=== PATIENT | female | born 1940 | race Two or more races ===

== ENCOUNTER 2023-08-05 17:16 | Inpatient (IN) | payer MEDICARE, MEDICAID ==
[~2023-08-05] VITALS: Ht 172.7 cm; Wt 86.2 kg
[2023-08-05] MEDS ORDERED: GABA300C PO (18:05)
[2023-08-05] MEDS ORDERED: VIT1CAPS44 PO (18:05)
[2023-08-05] MEDS ORDERED: OLAN2.5T3 PO (18:05)
[2023-08-05] MEDS ORDERED: LEVO175T7 PO (18:05)
[2023-08-05] MEDS ORDERED: CYAN25003 SL (18:05)
[2023-08-05] MEDS ORDERED: IRBE150T28 PO (18:05)
[2023-08-05] MEDS ORDERED: METR45GE TP (18:05)
[2023-08-05] MEDS ORDERED: CHOL200059 PO (18:05)
[2023-08-05] MEDS ORDERED: DEXT15DR23 EACHEYE (18:05)
[2023-08-05] MEDS ORDERED: FAMO20TA8 PO (18:05)
[2023-08-05] MEDS ORDERED: FURO-145 PO (18:05)
[2023-08-05] MEDS ORDERED: APIX2.5T PO (18:05)
[2023-08-05 18:09] LABS: BASOPHILS % (AUTO) 0.4 % (0.0-2.0); EOSINOPHILS # (AUTO) 0.4 K/uL (0.0-0.7); EOSINOPHILS % (AUTO) 5.3 % (0.0-6.0); HEMATOCRIT 38 % (33-45); HEMOGLOBIN 12.3 g/dL (11.5-14.8); LYMPHOCYTES # (AUTO) 1.6 K/uL (0.8-4.8); LYMPHOCYTES % (AUTO) 22.8 % (20.0-44.0); MEAN CORPUSCULAR HEMOGLOBIN 28 PG (26.0-33.0); MEAN CORPUSCULAR HGB CONC 32 g/dl (31.0-36.0); MEAN CORPUSCULAR VOLUME 88 fL (82-100); MONOCYTES # (AUTO) 0.8 K/uL (0.1-1.30); MONOCYTES % (AUTO) 10.8 % (2.0-12.0); NEUTROPHILS # (AUTO) 4.3 K/uL (1.8-8.9); NEUTROPHILS % (AUTO) 60.7 % (43.0-81.0); PLATELET COUNT (AUTO) 225 K/uL (150-450); RED BLOOD CELL COUNT(AUTO) 4.36 MIL/uL (4.0-5.2); RED CELL DISTRIBUTION WIDTH 14.9 % (11.5-15.0); WHITE BLOOD COUNT (AUTO) 7.1 K/uL (4.3-11.0)
[2023-08-05 18:50] LABS: CALCIUM, SERUM 8.5 mg/dL (8.5-10.1); CARBON DIOXIDE 29 mmol/L (21-32); CHLORIDE 105 mmol/L (98-107); GLUCOSE 91 mg/dL (74-106); POTASSIUM 4.1 mmol/L (3.5-5.1); SODIUM SERUM 139 mmol/L (136-145); UREA NITROGEN, BLOOD 23 mg/dL (7-18)
[2023-08-05 18:55] LABS: ALANINE AMINOTRANSFERASE 18 U/L (12-78); ALBUMIN 3.4 g/dL (3.4-5.0); ALCOHOL, BLOOD < 3 mg/dL (0-10); ALKALINE PHOSPHATASE 104 U/L (46-116); ASPARTATE AMINOTRANSFERASE 21 U/L (15-37); BILIRUBIN,DIRECT 0.2 mg/dL (0.0-0.2); BILIRUBIN,TOTAL 0.7 mg/dL (0.2-1.0); TOTAL PROTEIN, SERUM 7.9 g/dL (6.4-8.2)
[2023-08-05 18:56] LABS: ACETAMINOPHEN 0 ug/ml (10-30); SALICYLATE 0.4 mg/dL (2.8-20.0)
[2023-08-05 19:36] LABS: APPEARANCE,URINE CLEAR (CLEAR); BILIRUBIN,URINE NEGATIVE (NEGATIVE); BLOOD, URINE NEGATIVE Ery/uL (NEGATIVE); COLOR,URINE YELLOW (YELLOW); KETONES,URINE NEGATIVE (NEGATIVE); LEUKOCYTE ESTERASE ,URINE NEGATIVE (NEGATIVE); NITRITE, URINE NEGATIVE (NEGATIVE); PH,URINE 6.5 (5.0-8.0); PROTEIN,URINE NEGATIVE (NEGATIVE); UGLUCOSE NEGATIVE (NEGATIVE)
[2023-08-05 19:49] LABS: AMPHETAMINE, URINE NEGATIVE (NEGATIVE); BARBITURATE, URINE NEGATIVE (NEGATIVE); BENZODIAZEPINE, URINE NEGATIVE (NEGATIVE); CANNABINOID, URINE NEGATIVE (NEGATIVE); COCCAINE, URINE NEGATIVE (NEGATIVE); OPIATE, URINE NEGATIVE (NEGATIVE); PHENCYCLIDINE SCREEN,URINE NEGATIVE (NEGATIVE)
[2023-08-05 21:30] VITALS: BP 132/65; TEMP 98.5; O2SAT 96
[2023-08-05] MEDS ORDERED: GABAPENTIN 300 MG CAPSULE PO SCH (22:00)
[2023-08-05] MEDS ORDERED: BLOOD SUGAR DIAGNOSTIC 1 EACH STRIP IN ONE (22:30)
[2023-08-05] MEDS ORDERED: ACETAMINOPHEN 325 MG TABLET PO PRN (22:30)
[2023-08-05] MEDS ORDERED: LORAZEPAM 1 MG TABLET PO PRN (22:30)
[2023-08-05] MEDS ORDERED: MAGNESIUM HYDROXIDE 30 ML UDC PO PRN (22:30)
[2023-08-05] MEDS ORDERED: MAG HYDROX/AL HYDROX/SIMETH 30 ML UDC PO PRN (22:30)
[2023-08-06 06:23] VITALS: BP 132/65; TEMP 98.5; O2SAT 95
[2023-08-06] MEDS: LEVOTHYROXINE SODIUM 175 MCG TABLET PO SCH ×2 (07:00→07:10)
[2023-08-06 07:51] LABS: CHOLESTEROL 138 mg/dL (<200); HDL CHOLESTEROL 62 mg/dL (40-60); LDL 67 mg/dL (0-99); TRIGLYCERIDES 48 mg/dL (30-150)
[2023-08-06 07:54] LABS: ALBUMIN 2.8 g/dL (3.4-5.0); BILIRUBIN,TOTAL 0.8 mg/dL (0.2-1.0); CALCIUM, SERUM 8.3 mg/dL (8.5-10.1); CREATININE 0.8 mg/dL (0.6-1.3); POTASSIUM 3.7 mmol/L (3.5-5.1); TOTAL PROTEIN, SERUM 6.8 g/dL (6.4-8.2)
[2023-08-06] MEDS: LOSARTAN POTASSIUM 50 MG TABLET PO SCH (09:00)
[2023-08-06] MEDS: POLYVINYL ALCOHOL 15 ML BOTTLE EACHEYE SCH ×4 (09:00→20:54)
[2023-08-06] MEDS: CYANOCOBALAMIN 500 MCG TABLET PO SCH (09:00)
[2023-08-06] MEDS: MULTIVITAMIN/LUTEIN/MINERALS 1 TAB PO SCH (09:00)
[2023-08-06] MEDS: APIXABAN 2.5 MG TABLET PO SCH ×2 (09:00→16:44)
[2023-08-06] MEDS: CHOLECALCIFEROL 1,000 UNIT TABLET (VIT D3) PO SCH (09:00)
[2023-08-06] MEDS ORDERED: OLANZAPINE 10 MG VIAL IM ONE (14:30)
[2023-08-06 16:00] VITALS: BP 165/65; TEMP 97.9; O2SAT 97
[2023-08-06] MEDS ORDERED: diphenhydrAMINE HCL 25 MG CAPSULE PO ONE (17:00)
[2023-08-06] MEDS: OLANZAPINE 2.5 MG TABLET PO SCH (17:57)
[2023-08-06] MEDS: FAMOTIDINE (20 MG) 20 MG TABLET PO SCH (17:57)
[2023-08-06] MEDS: FUROSEMIDE 20 MG TABLET PO SCH (17:57)
[2023-08-06 20:00] VITALS: BP 156/66; TEMP 98; O2SAT 96
[2023-08-06] MEDS ORDERED: LOSARTAN POTASSIUM 50 MG TABLET PO ONE ×2 (21:00)
[2023-08-06] MEDS: ZOLPIDEM TARTRATE 5 MG TABLET PO PRN (22:22)
[2023-08-07] MEDS: LEVOTHYROXINE SODIUM 175 MCG TABLET PO SCH (06:27)
[2023-08-07 08:00] VITALS: BP 148/75; TEMP 97.7; O2SAT 97
[2023-08-07] MEDS: MULTIVITAMIN/LUTEIN/MINERALS 1 TAB PO SCH (09:08)
[2023-08-07] MEDS: CHOLECALCIFEROL 1,000 UNIT TABLET (VIT D3) PO SCH (09:08)
[2023-08-07] MEDS: CYANOCOBALAMIN 500 MCG TABLET PO SCH (09:09)
[2023-08-07] MEDS: OLANZAPINE 2.5 MG TABLET PO SCH ×2 (09:09→16:31)
[2023-08-07] MEDS: APIXABAN 2.5 MG TABLET PO SCH ×2 (09:09→16:31)
[2023-08-07] MEDS: LOSARTAN POTASSIUM 50 MG TABLET PO SCH (09:10)
[2023-08-07] MEDS: POLYVINYL ALCOHOL 15 ML BOTTLE EACHEYE SCH ×4 (09:40→21:23)
[2023-08-07 16:00] VITALS: BP 128/74; TEMP 97.5; O2SAT 98
[2023-08-07] MEDS: FAMOTIDINE (20 MG) 20 MG TABLET PO SCH (17:20)
[2023-08-07] MEDS: FUROSEMIDE 20 MG TABLET PO SCH (17:21)
[2023-08-07 20:00] VITALS: BP 164/72; TEMP 97.6; O2SAT 97
[2023-08-07] MEDS ORDERED: DIVALPROEX SODIUM 125 MG TABLET.DR PO SCH (22:00)
[2023-08-07] MEDS: ZOLPIDEM TARTRATE 5 MG TABLET PO PRN (23:38)
[2023-08-08] MEDS: LEVOTHYROXINE SODIUM 175 MCG TABLET PO SCH ×2 (07:00→08:45)
[2023-08-08 08:00] VITALS: BP 172/65; TEMP 97.9; O2SAT 94
[2023-08-08] MEDS: CYANOCOBALAMIN 500 MCG TABLET PO SCH (10:31)
[2023-08-08] MEDS: CHOLECALCIFEROL 1,000 UNIT TABLET (VIT D3) PO SCH (10:31)
[2023-08-08] MEDS: POLYVINYL ALCOHOL 15 ML BOTTLE EACHEYE SCH ×4 (10:32→22:07)
[2023-08-08] MEDS: OLANZAPINE 2.5 MG TABLET PO SCH (10:32)
[2023-08-08] MEDS: MULTIVITAMIN/LUTEIN/MINERALS 1 TAB PO SCH (10:32)
[2023-08-08] MEDS: LOSARTAN POTASSIUM 50 MG TABLET PO SCH (10:32)
[2023-08-08] MEDS: APIXABAN 2.5 MG TABLET PO SCH ×2 (10:33→17:00)
[2023-08-08 16:00] VITALS: BP 151/61; TEMP 98; O2SAT 96
[2023-08-08] MEDS ORDERED: DIVALPROEX SODIUM 125 MG TABLET.DR PO SCH (17:00)
[2023-08-08] MEDS: DIVALPROEX SODIUM 125 MG CAP.SPRINK PO SCH (17:00)
[2023-08-08] MEDS: FAMOTIDINE (20 MG) 20 MG TABLET PO SCH (17:16)
[2023-08-08] MEDS: FUROSEMIDE 20 MG TABLET PO SCH (17:16)
[2023-08-08 20:00] VITALS: BP 153/67; TEMP 97.8; O2SAT 95
[2023-08-08] MEDS ORDERED: OLANZAPINE 2.5 MG TABLET PO SCH (22:00)
[2023-08-09 08:00] VITALS: BP 154/79; TEMP 97.9; O2SAT 94
[2023-08-09] MEDS: LEVOTHYROXINE SODIUM 175 MCG TABLET PO SCH (08:07)
[2023-08-09] MEDS: CHOLECALCIFEROL 1,000 UNIT TABLET (VIT D3) PO SCH (08:07)
[2023-08-09] MEDS: MULTIVITAMIN/LUTEIN/MINERALS 1 TAB PO SCH (08:07)
[2023-08-09] MEDS: DIVALPROEX SODIUM 125 MG CAP.SPRINK PO SCH ×3 (08:08→16:55)
[2023-08-09] MEDS: OLANZAPINE 2.5 MG TABLET PO SCH ×2 (08:08→21:54)
[2023-08-09] MEDS: CYANOCOBALAMIN 500 MCG TABLET PO SCH (08:08)
[2023-08-09] MEDS: LOSARTAN POTASSIUM 50 MG TABLET PO SCH (08:08)
[2023-08-09] MEDS: APIXABAN 2.5 MG TABLET PO SCH ×2 (08:09→16:55)
[2023-08-09] MEDS: POLYVINYL ALCOHOL 15 ML BOTTLE EACHEYE SCH ×4 (09:16→21:55)
[2023-08-09] MEDS: Z GUARD REMEDY 4 OZ OINT TP SCH ×2 (09:16→16:56)
[2023-08-09 16:00] VITALS: BP 134/65; TEMP 98.9; O2SAT 94
[2023-08-09] MEDS: FUROSEMIDE 20 MG TABLET PO SCH (17:29)
[2023-08-09] MEDS: FAMOTIDINE (20 MG) 20 MG TABLET PO SCH (17:29)
[2023-08-09 20:07] VITALS: BP 160/79; TEMP 98.6; O2SAT 99
[2023-08-09] MEDS: ZOLPIDEM TARTRATE 5 MG TABLET PO PRN (22:01)
[2023-08-10 08:00] VITALS: BP 156/69; TEMP 97.9; O2SAT 96
[2023-08-10] MEDS: APIXABAN 2.5 MG TABLET PO SCH ×2 (09:00→17:11)
[2023-08-10] MEDS: CYANOCOBALAMIN 500 MCG TABLET PO SCH (09:00)
[2023-08-10] MEDS: Z GUARD REMEDY 4 OZ OINT TP SCH ×2 (09:00→17:03)
[2023-08-10] MEDS: CHOLECALCIFEROL 1,000 UNIT TABLET (VIT D3) PO SCH (10:28)
[2023-08-10] MEDS: MULTIVITAMIN/LUTEIN/MINERALS 1 TAB PO SCH (10:28)
[2023-08-10] MEDS: DIVALPROEX SODIUM 125 MG CAP.SPRINK PO SCH ×3 (10:28→17:03)
[2023-08-10] MEDS: LEVOTHYROXINE SODIUM 175 MCG TABLET PO SCH (10:28)
[2023-08-10] MEDS: POLYVINYL ALCOHOL 15 ML BOTTLE EACHEYE SCH ×4 (10:28→21:35)
[2023-08-10] MEDS: LOSARTAN POTASSIUM 50 MG TABLET PO SCH (10:29)
[2023-08-10] MEDS: OLANZAPINE 2.5 MG TABLET PO SCH ×2 (10:29→21:36)
[2023-08-10 16:00] VITALS: BP 126/61; TEMP 98.1; O2SAT 97
[2023-08-10] MEDS: FUROSEMIDE 20 MG TABLET PO SCH (17:14)
[2023-08-10] MEDS: FAMOTIDINE (20 MG) 20 MG TABLET PO SCH (17:14)
[2023-08-10 20:20] VITALS: BP 138/58; TEMP 98; O2SAT 96
[2023-08-10] MEDS: ZOLPIDEM TARTRATE 5 MG TABLET PO PRN (21:36)
[2023-08-11] MEDS: LEVOTHYROXINE SODIUM 175 MCG TABLET PO SCH (06:25)
[2023-08-11 08:00] VITALS: BP 157/77; TEMP 97.8; O2SAT 96
[2023-08-11 08:16] LABS: ALBUMIN 3.1 g/dL (3.4-5.0); BILIRUBIN,TOTAL 0.6 mg/dL (0.2-1.0); CALCIUM, SERUM 9.1 mg/dL (8.5-10.1); CREATININE 0.8 mg/dL (0.6-1.3); POTASSIUM 3.4 mmol/L (3.5-5.1); TOTAL PROTEIN, SERUM 7.5 g/dL (6.4-8.2)
[2023-08-11] MEDS: CHOLECALCIFEROL 1,000 UNIT TABLET (VIT D3) PO SCH (08:34)
[2023-08-11] MEDS: APIXABAN 2.5 MG TABLET PO SCH ×2 (08:34→16:46)
[2023-08-11] MEDS: MULTIVITAMIN/LUTEIN/MINERALS 1 TAB PO SCH (08:34)
[2023-08-11] MEDS: OLANZAPINE 2.5 MG TABLET PO SCH (08:35)
[2023-08-11] MEDS: CYANOCOBALAMIN 500 MCG TABLET PO SCH (08:35)
[2023-08-11] MEDS: POLYVINYL ALCOHOL 15 ML BOTTLE EACHEYE SCH ×3 (08:36→16:52)
[2023-08-11] MEDS: LOSARTAN POTASSIUM 50 MG TABLET PO SCH (08:36)
[2023-08-11] MEDS: DIVALPROEX SODIUM 125 MG CAP.SPRINK PO SCH ×3 (08:36→16:46)
[2023-08-11] MEDS: Z GUARD REMEDY 4 OZ OINT TP SCH ×2 (08:37→16:52)
[2023-08-11] MEDS ORDERED: POTASSIUM CHLORIDE 20 MEQ TAB.PRT.SR PO SCH (10:00)
[2023-08-11 16:06] VITALS: BP 149/63; TEMP 97.5; O2SAT 97
== END 2023-08-11 17:05 | DRG 885 ==
LOC: ER 17:23 → GPS 21:51
PROVIDERS: ADMIT Psychiatry & Neurology Psychiatry; ATTEND Nurse Practitioner Acute Care
DX: F39 Unspecified mood [affective] disorder (principal); F01.53 Vascular dementia, unspecified severity, with mood disturbance; N18.9 Chronic kidney disease, unspecified; N17.9 Acute kidney failure, unspecified; E44.0 Moderate protein-calorie malnutrition; F01.518 Vascular dementia, unspecified severity, with other behavioral disturbance; G93.40 Encephalopathy, unspecified; F01.52 Vascular dementia, unspecified severity, with psychotic disturbance; I13.0 Hypertensive heart and chronic kidney disease with heart failure and stage 1 through stage 4 chronic kidney disease, or unspecified chronic kidney disease; F29 Unspecified psychosis not due to a substance or known physiological condition; E03.9 Hypothyroidism, unspecified; E53.8 Deficiency of other specified B group vitamins; E78.5 Hyperlipidemia, unspecified; G47.00 Insomnia, unspecified; G62.9 Polyneuropathy, unspecified; Z83.3 Family history of diabetes mellitus; Z86.73 Personal history of transient ischemic attack (TIA), and cerebral infarction without residual deficits; Z88.2 Allergy status to sulfonamides; Z90.710 Acquired absence of both cervix and uterus; Z20.822 Contact with and (suspected) exposure to COVID-19; K21.9 Gastro-esophageal reflux disease without esophagitis; H91.10 Presbycusis, unspecified ear; I50.9 Heart failure, unspecified; I87.2 Venous insufficiency (chronic) (peripheral); D49.511 Neoplasm of unspecified behavior of right kidney; H35.3210 Exudative age-related macular degeneration, right eye, stage unspecified; I73.9 Peripheral vascular disease, unspecified; I87.8 Other specified disorders of veins; Z68.28 Body mass index [BMI] 28.0-28.9, adult; Z79.01 Long term (current) use of anticoagulants; Z86.718 Personal history of other venous thrombosis and embolism; H04.129 Dry eye syndrome of unspecified lacrimal gland; R32 Unspecified urinary incontinence; Z79.899 Other long term (current) drug therapy
CPT/HCPCS: 36415; 80048-TC; 80053-TC; 80061-TC; 80076-TC; 80164-TC; 82962-TC; 85025-TC; 87081-TC; 97112-TC; 97116-TC; 97530-TC; C9803; G0480; J3490; Q0163